=== PATIENT | female | born 1945 | race Caucasian/White ===

== ENCOUNTER 2017-11-12 09:42 | Inpatient (IN) | payer MEDICARE, OTHER ==
[~2017-11-12] VITALS: Ht 172.7 cm; Wt 81.0 kg
[~2017-11-12 09:42] MED LIST: ACET325 PO; ALBU90OI6 INH; AMIO200; AMIT50 PO; AMLO10; AMLO10 PO; Accupril40 MG PO; Amlodipine Besyl5 MG PO; BENA20 PO; BISA10S PR; CLON.1 PO; CVS DISPOSABLE399 ML PR; ENOX40I SC; FISH1000 PO; FOLI400 PO; Fenofibrate134 MG PO; GLIM4 PO; Gabapentin600 MG PO; HYDACE5; HYDR1TAB94 PO; Hydrocodone-Ap1 EA23 PO; IMODIUM A-D2 M1 PO; INSUASPI SC; IRBE150; K-Dur20 MEQ PO; LANS30EC; LAVAP17G PO; LEVSOD50 PO; LIDO5TO TOP; LOSARTAN POTASS50 MG PO; MAGCHL64ER PO; META800; METAXALONE800 MG PO; METF500; METF500 PO; METO100ER; METO100ER PO; METO2.5; METO2.5 PO; MULTI VITAMIN1 EACH PO; Milk Of Ma400 MG/5 M PO; OMEP20ER PO; OMEPRAZOLE MAGN20 MG PO; ONDA4 PO; POTA10T PO; PROMETH-CODEIN 65 ML PO; Potassium Chlo10 ME1 PO; QUIN5; Quinapril HCl40 MG PO; SACC250C PO; SPIR25; SPIR25 PO; TORSE20 PO; WARF4 PO; WARF5 PO; WARFARIN PO; Zofran4 MG PO
[2017-11-12 10:32] LABS: BASOPHILS ABSOLUTE AUTO 0.05 K/mm3 (0.00-0.23); BASOPHILS PERCENT AUTO 0 % (0-2); EOSINOPHILS ABSOLUTE AUTO 0.01 K/mm3 (0.00-0.68); EOSINOPHILS PERCENT AUTO 0 % (0-6); Hematocrit 43.4 % (33.0-51.0); Hemoglobin 14.7 g/dL (11.5-16.0); IMMATURE GRAN ABSOLUTE AUTO 0.11 K/mm3 (0.00-0.10); IMMATURE GRAN PERCENT AUTO 1 % (0-1); LYMPHOCYTES ABSOLUTE AUTO 0.92 K/mm3 (0.84-5.20); LYMPHOCYTES PERCENT AUTO 4 % (21-46); MONOCYTES PERCENT AUTO 6 % (4-13); Mean Corpuscular HGB 28.3 pg (26.0-34.0); Mean Corpuscular HGB Conc 33.9 g/dL (31.5-36.5); Mean Corpuscular Volume 84 fL (80-100); Mean Platelet Volume 9.4 fL (9.1-12.4); NEUTROPHILS ABSOLUTE AUTO 19.76 K/mm3 (1.96-9.15); NEUTROPHILS PERCENT AUTO 89 % (41-73); Platelet Count 395 K/mm3 (150-400); RDW Coefficient Variation 12.7 % (11.7-14.2); RDW Standard Deviation 38.7 fL (35.1-46.3); Red Blood Cell Count 5.19 M/mm3 (3.80-5.20); White Blood Cell Count 22.25 K/mm3 (4.00-11.30)
[2017-11-12 10:46] LABS: Albumin, Blood 4.2 g/dL (3.4-5.0); Bun/Creatinine Ratio 20.9 (12.0-20.0); Calcium, Blood 10.8 mg/dL (8.5-10.1); Creatinine, Blood 1.1 mg/dL (0.40-1.00); Globulin, Blood 4.2 g/dL (2.2-4.0); Potassium, Blood 4.6 mmol/L (3.5-5.5); Total Protein, Blood 8.4 g/dL (6.4-8.2)
[2017-11-12] MEDS ORDERED: TORSE20 PO (11:17)
[2017-11-12] MEDS ORDERED: METF500 PO (11:20)
[2017-11-12] MEDS ORDERED: GABA600 PO (11:22)
[2017-11-12] MEDS ORDERED: MAGCHL64ER PO (11:23)
[2017-11-12] MEDS ORDERED: TRIA15CR3 TOP (11:24)
[2017-11-12] MEDS ORDERED: AMIT25 PO (11:24)
[2017-11-12 17:22] LABS: International Normalized Ratio 1.97; Prothrombin Time Results 20.9 Sec (9.7-11.5)
[2017-11-12 17:46] LABS: Source, Urine Catheter
[2017-11-12 17:50] LABS: Bilirubin, Urine Neg (Neg); Blood, Urine 1+ (Neg); Glucose Qualitative, Urine Neg (Neg); Ketones, Urine Neg (Neg); Leukocyte Esterase, Urine 3+ (Neg); Nitrite, Urine Neg (Neg); Protein, Urine 2+ (Neg); Urobilinogen, Urine NORM (Normal)
[2017-11-12 18:01] LABS: Appearance, Urine Hazy (Clear); Color, Urine Yellow (P-Yellow)
[2017-11-12 18:02] LABS: White Blood Cells, Urine TNTC /hpf (0-5)
[2017-11-12 18:03] LABS: Bacteria Many /hpf; Renal Epithelial Few /hpf (0-Rare); Squamous Epithelial Cells Few /hpf (Few); Transitional Epithelial Cells Few /hpf (0-Rare)
[2017-11-13 05:07] LABS: BASOPHILS ABSOLUTE AUTO 0.03 K/mm3 (0.00-0.23); BASOPHILS PERCENT AUTO 0 % (0-2); EOSINOPHILS ABSOLUTE AUTO 0.05 K/mm3 (0.00-0.68); EOSINOPHILS PERCENT AUTO 0 % (0-6); Hematocrit 37.8 % (33.0-51.0); Hemoglobin 12.4 g/dL (11.5-16.0); IMMATURE GRAN ABSOLUTE AUTO 0.05 K/mm3 (0.00-0.10); IMMATURE GRAN PERCENT AUTO 0 % (0-1); LYMPHOCYTES ABSOLUTE AUTO 1.18 K/mm3 (0.84-5.20); LYMPHOCYTES PERCENT AUTO 7 % (21-46); MONOCYTES ABSOLUTE AUTO 1.66 K/mm3 (0.16-1.47); MONOCYTES PERCENT AUTO 10 % (4-13); Mean Corpuscular HGB 28.4 pg (26.0-34.0); Mean Corpuscular HGB Conc 32.8 g/dL (31.5-36.5); Mean Platelet Volume 9.6 fL (9.1-12.4); NEUTROPHILS ABSOLUTE AUTO 13.16 K/mm3 (1.96-9.15); NEUTROPHILS PERCENT AUTO 82 % (41-73); Platelet Count 331 K/mm3 (150-400); RDW Coefficient Variation 13.1 % (11.7-14.2); RDW Standard Deviation 40.9 fL (35.1-46.3); Red Blood Cell Count 4.36 M/mm3 (3.80-5.20); White Blood Cell Count 16.13 K/mm3 (4.00-11.30)
[2017-11-13 05:10] LABS: Mean Corpuscular Volume 87 fL (80-100)
[2017-11-13 05:20] LABS: International Normalized Ratio 1.26; Prothrombin Time Results 13.2 Sec (9.7-11.5)
[2017-11-13 05:27] LABS: Bun/Creatinine Ratio 21.8 (12.0-20.0); Calcium, Blood 9.5 mg/dL (8.5-10.1); Creatinine, Blood 1.01 mg/dL (0.40-1.00); Potassium, Blood 4.4 mmol/L (3.5-5.5)
[2017-11-14 04:57] LABS: BASOPHILS ABSOLUTE AUTO 0.03 K/mm3 (0.00-0.23); BASOPHILS PERCENT AUTO 0 % (0-2); EOSINOPHILS ABSOLUTE AUTO 0.17 K/mm3 (0.00-0.68); EOSINOPHILS PERCENT AUTO 1 % (0-6); Hematocrit 31.9 % (33.0-51.0); Hemoglobin 10.3 g/dL (11.5-16.0); IMMATURE GRAN ABSOLUTE AUTO 0.08 K/mm3 (0.00-0.10); IMMATURE GRAN PERCENT AUTO 1 % (0-1); LYMPHOCYTES ABSOLUTE AUTO 1.32 K/mm3 (0.84-5.20); LYMPHOCYTES PERCENT AUTO 11 % (21-46); MONOCYTES ABSOLUTE AUTO 1.25 K/mm3 (0.16-1.47); MONOCYTES PERCENT AUTO 10 % (4-13); Mean Corpuscular HGB 28.5 pg (26.0-34.0); Mean Corpuscular HGB Conc 32.3 g/dL (31.5-36.5); Mean Corpuscular Volume 88 fL (80-100); Mean Platelet Volume 9.3 fL (9.1-12.4); NEUTROPHILS ABSOLUTE AUTO 9.15 K/mm3 (1.96-9.15); NEUTROPHILS PERCENT AUTO 76 % (41-73); Platelet Count 230 K/mm3 (150-400); RDW Coefficient Variation 12.9 % (11.7-14.2); RDW Standard Deviation 41.9 fL (35.1-46.3); Red Blood Cell Count 3.62 M/mm3 (3.80-5.20)
[2017-11-14 05:09] LABS: International Normalized Ratio 1.09; Prothrombin Time Results 11.4 Sec (9.7-11.5)
[2017-11-14 05:41] LABS: Anion Gap 10 mmol/L (6-16); Blood Urea Nitrogen 20 mg/dL (8-24); CO2, Blood 26 mmol/L (21-32); Calcium, Blood 9.2 mg/dL (8.5-10.1); Chloride, Blood 105 mmol/L (98-108); Creatinine, Blood 0.95 mg/dL (0.40-1.00); Glomerular Filtration Rate >60 (60-); Glucose, Blood 162 mg/dL (70-99); Sodium, Blood 141 mmol/L (136-145)
[2017-11-14 16:24] LABS: Source, Urine Clean Catch
[2017-11-14 16:27] LABS: Bilirubin, Urine Neg (Neg); Blood, Urine Neg (Neg); Glucose Qualitative, Urine Neg (Neg); Ketones, Urine Neg (Neg); Leukocyte Esterase, Urine 2+ (Neg); Nitrite, Urine Neg (Neg); Protein, Urine Neg (Neg); Specific Gravity, Urine 1.005 (1.003-1.022); Urobilinogen, Urine NORM (Normal)
[2017-11-14 16:36] LABS: Appearance, Urine Clear (Clear); Bacteria Mod /hpf; Color, Urine Yellow (P-Yellow); Red Blood Cells, Urine 0-2 /hpf (0-2); Squamous Epithelial Cells Few /hpf (Few)
[2017-11-15 05:52] LABS: International Normalized Ratio 1.12; Prothrombin Time Results 11.7 Sec (9.7-11.5)
[2017-11-16 04:30] LABS: International Normalized Ratio 1.28; Prothrombin Time Results 13.4 Sec (9.7-11.5)
== END 2017-11-16 17:15 | disposition home or self-care (01) | DRG 336 ==
LOC: ER 09:42 → SURS 13:17
PROVIDERS: Emergency Medicine; Hospitalist; Surgery
PROC: 0DN80ZZ Release Small Intestine, Open Approach (ICD-10-PCS; principal; 2017-11-12 17:00)
DX: K56.51 Intestinal adhesions [bands], with partial obstruction (principal); E87.1 Hypo-osmolality and hyponatremia; E11.59 Type 2 diabetes mellitus with other circulatory complications; I42.9 Cardiomyopathy, unspecified; K86.0 Alcohol-induced chronic pancreatitis; I48.91 Unspecified atrial fibrillation; D72.829 Elevated white blood cell count, unspecified; E86.0 Dehydration; N39.0 Urinary tract infection, site not specified; E03.9 Hypothyroidism, unspecified; E78.5 Hyperlipidemia, unspecified; I10 Essential (primary) hypertension; M19.90 Unspecified osteoarthritis, unspecified site; Z79.01 Long term (current) use of anticoagulants; Z86.79 Personal history of other diseases of the circulatory system
CPT/HCPCS: 36415; 74022; 74176; 80048; 80053; 81001; 82947; 83690; 85025; 85610; 87077; 87086; 87186; 93005; 93010; 96361; 96374; 96375; 96376; 99285; C9113; J0330; J0360; J1885; J1956; J2405; J3010; J3430; J7030

== ENCOUNTER → 2017-12-18 | Outpatient (CLI) | payer MEDICARE, OTHER ==
[~2017-12-18] MED LIST changes: +AMIT25 PO; +GABA600 PO; +TRIA15CR3 TOP
== END ==
LOC: LAB SHORT 18:40 → LAB EV 18:40
DX: N39.0 Urinary tract infection, site not specified (principal)
CPT/HCPCS: 87077; 87086; 87186

== ENCOUNTER 2019-03-09 22:06 | Observation (INO) | payer MEDICARE, OTHER ==
[~2019-03-09] VITALS: Ht 172.7 cm; Wt 109.3 kg
[2019-03-09 22:58] LABS: BASOPHILS ABSOLUTE AUTO 0.04 K/mm3 (0.00-0.23); BASOPHILS PERCENT AUTO 0 % (0-2); EOSINOPHILS ABSOLUTE AUTO 0.04 K/mm3 (0.00-0.68); EOSINOPHILS PERCENT AUTO 0 % (0-6); Hematocrit 35.1 % (33.0-51.0); Hemoglobin 11.1 g/dL (11.5-16.0); IMMATURE GRAN ABSOLUTE AUTO 0.03 K/mm3 (0.00-0.10); IMMATURE GRAN PERCENT AUTO 0 % (0-1); LYMPHOCYTES ABSOLUTE AUTO 0.79 K/mm3 (0.84-5.20); LYMPHOCYTES PERCENT AUTO 9 % (21-46); MONOCYTES ABSOLUTE AUTO 1.01 K/mm3 (0.16-1.47); MONOCYTES PERCENT AUTO 11 % (4-13); Mean Corpuscular HGB 28.6 pg (26.0-34.0); Mean Corpuscular HGB Conc 31.6 g/dL (31.5-36.5); Mean Corpuscular Volume 91 fL (80-100); Mean Platelet Volume 9.5 fL (9.1-12.4); NEUTROPHILS ABSOLUTE AUTO 7.03 K/mm3 (1.96-9.15); NEUTROPHILS PERCENT AUTO 79 % (41-73); Platelet Count 273 K/mm3 (150-400); RDW Coefficient Variation 13.3 % (11.7-14.2); RDW Standard Deviation 44.1 fL (35.1-46.3); Red Blood Cell Count 3.88 M/mm3 (3.80-5.20); White Blood Cell Count 8.94 K/mm3 (4.00-11.30)
[2019-03-09 23:17] LABS: International Normalized Ratio 3.41; Prothrombin Time Results 32.3 Sec (9.7-11.5)
[2019-03-09 23:20] LABS: Albumin, Blood 3.9 g/dL (3.4-5.0); Albumin/Globulin Ratio 1.1 (0.8-1.8); Bilirubin, Total 0.3 mg/dL (0.1-1.0); Calcium, Blood 9.2 mg/dL (8.5-10.1); Creatinine, Blood 1.41 mg/dL (0.40-1.00); Globulin, Blood 3.6 g/dL (2.2-4.0); Potassium, Blood 6.2 mmol/L (3.5-5.5); Total Protein, Blood 7.5 g/dL (6.4-8.2)
[2019-03-10 00:42] LABS: Source, Urine Clean Catch
[2019-03-10 00:45] LABS: Appearance, Urine Cloudy (Clear); Bilirubin, Urine Neg (Neg); Blood, Urine 4+ (Neg); Color, Urine Yellow (P-Yellow); Glucose Qualitative, Urine Neg (Neg); Ketones, Urine Neg (Neg); Leukocyte Esterase, Urine 3+ (Neg); Nitrite, Urine Neg (Neg); Protein, Urine 2+ (Neg); Urobilinogen, Urine NORM (Normal)
[2019-03-10 00:50] LABS: White Blood Cells, Urine TNTC /hpf (0-5)
[2019-03-10 00:51] LABS: Bacteria Many /hpf; Squamous Epithelial Cells Few /hpf (Few)
--- NOTE | 2019-03-10 04:33 | NUR ---
0348 PT ADMITTED TO 356 PER CART FROM ER WITH SPOUSE AT SIDE. PTS ALL PERSONAL BELONGINGS SENT HOME. PT ALERT AND ORIENTED X2, SLIGHTLY FORGETFUL; HOWEVER ABLE TO FOLLOW ALL SIMPLE VERBAL COMMANDS.
--- NOTE | 2019-03-10 07:23 | NUR ---
SHIFT SUMMARY: 73 Y/O OBESE FEMALE HAD RESTLESS SHIFT. PTS IV RIGHT ANTECUBITAL SQ, DC'D ENTIRE CATHETER INTACT. THIS NURSE ATTEMPTED RESTART X 2 WITHOUT SUCCESS WITH ALBERTO GARCIA ATTEMPTING X 1 WITHOUT SUCCESS. PT WAS UP THREE TIMES X 1 STANDBY ASSIST TO UTILIZE BSC SINCE ADMISSION TO FLOOR. PT ALERT AND ORIENTED X 2, ABLE TO FOLLOW SIMPLE VERBAL COMMANDS. PTS BED ALARM APPLIED, BED LOW POSITION, CALL LIGHT AT SIDE. THIS NURSE ADVISED CHARGE NURSE--STEWART TITUS RN OF NEED FOR NEW IV WITH DAY SHIFT NURSE--MICHAEL DOMINGUEZ TO ATTEMPT POWER GLIDE.
[2019-03-10 09:40] LABS: International Normalized Ratio 2.17
[2019-03-10 09:43] LABS: Prothrombin Time Results 21.4 Sec (9.7-11.5)
[2019-03-10 09:47] LABS: Calcium, Blood 9.3 mg/dL (8.5-10.1); Creatinine, Blood 1.21 mg/dL (0.40-1.00); Potassium, Blood 5.1 mmol/L (3.5-5.5)
--- NOTE | 2019-03-10 14:48 | NUR ---
Patient in sitting up in bed with , Dick, bedside. Patient explains about her condition and although she came in last night she is ready to go home now. Bill explains that he is also having health issues and is scheduled for a surgical procedure. Since Bill had just arrived before me and wished to speak to patient privately, I asked if I could pray for them both. They affirmed that they would like that. So, I gladly provided prayer. Patient and Bill voiced appreciation for the prayer. I will continue to remain available.
[2019-03-10] MEDS ORDERED: CIPR250 PO (15:12)
--- NOTE | 2019-03-10 16:06 | NUR ---
PT AOX4 AND COOPERATIVE OF CARE. PT HAD ALL PAPERS REVIEWED AND EDUCATIONAL MATERIAL SIGNED AND SENT WITH HER. PT HAS APPOINTMENT SCHEDULED WITH DR MEYERS THURSDAY. NO DISTRESS NOTED. PT ESCORTED OUT IN WHEELCHAIR WITH TO TRANSPORT.
== END 2019-03-10 16:08 | disposition home or self-care (01) ==
LOC: ER 22:06 → MEDS 22:07
PROVIDERS: Emergency Medicine; ADMIT Hospitalist
DX: N39.0 Urinary tract infection, site not specified (principal); G92 Toxic encephalopathy; N17.9 Acute kidney failure, unspecified; E87.5 Hyperkalemia; E11.22 Type 2 diabetes mellitus with diabetic chronic kidney disease; I12.9 Hypertensive chronic kidney disease with stage 1 through stage 4 chronic kidney disease, or unspecified chronic kidney disease; N18.3 Chronic kidney disease, stage 3 (moderate); I48.91 Unspecified atrial fibrillation; M19.90 Unspecified osteoarthritis, unspecified site; E87.1 Hypo-osmolality and hyponatremia; Z90.49 Acquired absence of other specified parts of digestive tract; Z90.89 Acquired absence of other organs; Z90.710 Acquired absence of both cervix and uterus; Z79.899 Other long term (current) drug therapy; Z88.0 Allergy status to penicillin; Z88.1 Allergy status to other antibiotic agents
CPT/HCPCS: 36415; 70450; 80048; 80053; 81001; 82947; 84484; 85025; 85610; 85730; 87077; 87086; 87186; 93005; 93010; 96365; 96366; 96374; 96375; 99285-25; G0378; J0610; J0744; J1815; J7030; J7799

== ENCOUNTER 2019-05-20 18:15 | Emergency (ER) | payer MEDICARE, OTHER ==
[~2019-05-20] VITALS: Ht 172.7 cm; Wt 108.9 kg
[~2019-05-20 18:15] MED LIST changes: +CIPR250 PO
[2019-05-20 23:52] LABS: International Normalized Ratio 2.48; Prothrombin Time Results 24.2 Sec (9.7-11.5)
== END 2019-05-21 02:11 | disposition home or self-care (01) ==
LOC: ER 18:15
PROVIDERS: Emergency Medicine
DX: I11.0 Hypertensive heart disease with heart failure (principal); I50.9 Heart failure, unspecified; E11.9 Type 2 diabetes mellitus without complications; I48.2 Chronic atrial fibrillation; E87.1 Hypo-osmolality and hyponatremia; Z88.0 Allergy status to penicillin; Z88.1 Allergy status to other antibiotic agents; Z79.899 Other long term (current) drug therapy; Z79.01 Long term (current) use of anticoagulants; Z79.891 Long term (current) use of opiate analgesic; Z79.84 Long term (current) use of oral hypoglycemic drugs
CPT/HCPCS: 36415; 71046; 71260; 80053; 83880; 84443; 84484; 85025; 85610; 93005; 93010; 93971; 96360; 96361; 99284-25; J7030; Q9967

== ENCOUNTER → 2019-07-11 | Outpatient (CLI) | payer MEDICARE, OTHER | END | disposition home or self-care (01) | LOC: LAB SHORT 11:42 → LAB 11:42 | DX: L08.0 Pyoderma (principal) | CPT/HCPCS: 87070; 87077; 87147; 87186; 87205 ==

== ENCOUNTER 2020-03-20 10:16 | Inpatient (IN) | payer MEDICARE, OTHER ==
[~2020-03-20] VITALS: Ht 162.6 cm; Wt 103.2 kg
[2020-03-20] MEDS ORDERED: ELIQUIS5 M2 PO (11:02)
[2020-03-20] MEDS ORDERED: OLME20 PO (11:03)
[2020-03-20] MEDS ORDERED: PREG100 PO (11:04)
[2020-03-20] MEDS ORDERED: LIDO5TO TOP (11:04)
[2020-03-20] MEDS ORDERED: COMPLETENATE T1 EACH PO (11:06)
--- NOTE | 2020-03-20 16:02 | NUR ---
PT RETURNED TO RECOVERY ROOM, DIAPHORETIC. B/P 80/50, FLUIDS WIDE OPEN INCREASE TO 103/52. WILL CONTINUE TO MONITOR EVERY 5 MINUTES.
--- NOTE | 2020-03-20 17:03 | NUR ---
PT SENT TO CT SCAN FOR ABD/PELVIS AND TAKEN BACK TO THE LAB.
[2020-03-20 17:31] LABS: Hematocrit 24.3 % (33.0-51.0); Hemoglobin 7.6 g/dL (11.5-16.0)
--- NOTE | 2020-03-20 18:36 | NUR ---
1610 PATIENT AT THE BEDSIDE. PATIENT DIAPHORETIC. FLUID WIDE OPEN AND MONITORING VS CONTINOUSLY. DR. EDWARD CALLED TO THE BEDSIDE AND ASSESSED THE PATIENT. ORDERED STAT CT SCAN. PATIENT CONTINUED ON THE MONITOR THORUGHOUT TIME IN CT AND RETURN TO THE HOG COUNTER AT [id number]. NIBP REMAINS LOW, IVF ON PRESSURE BAG AND OPENED. PATIENT ALERT AND ABLE TO FOLLOW COMMANDS WHEN PROMPTED. UPDATED BY RN AND DR. EDWARD ON THE RESULTS OF CT SCAN.
[2020-03-20 18:43] LABS: Source, Urine Catheter
[2020-03-20 18:53] LABS: Bilirubin, Urine Neg (Neg); Blood, Urine 3+ (Neg); Glucose Qualitative, Urine Neg (Neg); Ketones, Urine Neg (Neg); Leukocyte Esterase, Urine 3+ (Neg); Nitrite, Urine Neg (Neg); Protein, Urine 1+ (Neg); Specific Gravity, Urine 1.005 (1.003-1.022); Urobilinogen, Urine NORM (Normal)
--- NOTE | 2020-03-20 18:53 | NUR ---
1809-RECEIVED THIS PATIENT FROM THE CANTILEVER CRANE OPERATOR. ALERT AND ORIENTED. PT IS FOLLOWING COMMANDS. PT ARRIVED TO THE UNIT AT S/P LE REVASCULARIZATION, DEVELOPED A RETROPERITONEAL BLEED. UPON ARRIVAL TO THE UNIT, PT IS COLD AND CLAMMY, DIAPHORETIC. DR. EDWARD AND DR. AL AT BEDSIDE. R GROIN ACCESS SITE HAS ANGIOSEAL CLOSURE, SOFT ON PALPATION. L GROIN HAS AN ARTERIAL SHEATH CONNECTED TO AN ART LINE. LEFT GROIN ACCESS SITE SOFT ON PALPATION. PEDAL PULSES ARE PALPABLE BUT FAINT. RADIAL PULSES AR PALPABLE. R IJ CENTRAL LINE. LUNGS SOUNDS CLEAR BY DIMINISHED. PT IS RECEIVING IV FLUIDS BOLUS. 1844-PRBC WAS STARTED. AT BEDSIDE.
[2020-03-20 18:57] LABS: Appearance, Urine Hazy (Clear); Color, Urine Yellow (P-Yellow)
[2020-03-20 18:59] LABS: Bacteria Many /hpf; Squamous Epithelial Cells Few /hpf (Few)
--- NOTE | 2020-03-20 20:56 | NUR ---
Valuable Check Two rings sent home with . Cane, glasses, upper dentures, and clothing remain with patient.
--- NOTE | 2020-03-20 21:11 | NUR ---
Provider Updated Dr. Hernández updated regarding current patient status. Client remains on vasopressors. Client to remain extended recovery at this time.
[2020-03-20 21:41] LABS: Hematocrit 39.4 % (33.0-51.0); Hemoglobin 12.1 g/dL (11.5-16.0)
--- NOTE | 2020-03-20 22:16 | NUR ---
PROVIDER UPDATE DR. MARTINEZ UPDATED ON PATIENT STATUS. URINE OUTPUT TRENDING DOWN. PATIENT STILL REQUIRING LEVOPHED TO MAINTAIN MAP>65. PATIENT REMAINS COOL AND DIAPHORETIC. WARMING BLANKET APPLIED. H&H IMPROVED FROM LAST RESULT. WILL REASSESS WITH 0130 CHECK. PLAN TO ADMINISTER ONE UNIT PRBCS AND NOTIFY DR. EDWARD IF HEMOGLOBIN IS BELOW 9. ELECTROYLTE REPLACEMENT PROTOCOL ORDER PLACED. NOTIFIED PROVIDER OF ABDOMINAL PAIN 05/31 AND THAT THE CLIENT REMAINS LETHARGIC. WILL CONTINUE TO MONITOR AND TITRATE VASPRESSOR ABLE.
[2020-03-20 22:46] LABS: Hematocrit 39.2 % (33.0-51.0); Hemoglobin 12.1 g/dL (11.5-16.0)
--- NOTE | 2020-03-20 23:27 | NUR ---
ASSUMED CARE ASSUMED CARE OF PATIENT. PATIENT ON 15 MCG/MIN OF LEVOPHED. LEFT FEMORAL ARTERIAL LINE IN PLACE. PATIENT ON 15 L O2 NON-REBREATHER. SHALLOW RESPIRATIONS SHALLOW. SKIN PALE AND CLAMMY. AT BEDSIDE. GROIN SITES ASSESSED WITH OFFGOING WITH NURSE. HOLLY PATENT AND DRAINING. PATIENT LETHARGIC BUT ROUSES TO LIGHT VERBAL STIMULI. ONE UNIT OF PRBCS INFUSING. SITE IDENTIFICATION SPECIALIST AT THE BEDSIDE. SEE ADMISSION ASSESSMENT FOR FULL ASSESSMENT.
--- NOTE | 2020-03-20 23:55 | NUR ---
HYPOTENSION/CALL TO MD AT 2335 ARTERIAL SBP 60-70s WITH AFIB, RATE 100-130s. LEVOPHED TITRATED UP TO 30MCG/MIN AND NEOSYNEPHRINE GTT RESTARTED AT 50MCG/MIN. DR. MARTINEZ NOTIFIED AT 2355 OF CHANGE IN HEMODYNAMICS AND THAT HER URINE OUTPUT HAS BEEN 0 FOR THE LAST TWO HOURS. NEW ORDERS RECEIVED FOR NS IV BOLUS X 2 L.
[2020-03-21 00:22] LABS: pH Blood Arterial 6.96 (7.35-7.45)
[2020-03-21 00:23] LABS: PCO2 Arterial 39.2 mmHg (35-45); PO2 Arterial >500 mmHg (80-100)
[2020-03-21 00:26] LABS: Hematocrit 37.9 % (33.0-51.0); Hemoglobin 11.3 g/dL (11.5-16.0)
--- NOTE | 2020-03-21 00:30 | NUR ---
ABG RESULTS/CALL TO CRITICAL ABG RESULTS AND HEMODYNAMIC UPDATE CALLED TO DR. MARTINEZ AT THIS TIME. NEW ORDERS RECEIVED FOR NAHCO3 IVP X 2 AMPS AND TO START A BICARB GTT. ALSO NOTIFIED OF PT'S C/O 05/31 RIGHT ABDOMEN PAIN- NEW ORDER RECEIVED FOR FENTANYL IVP FOR PAIN. ALSO DISCUSSED PREVIOUSLY ORDERED FLUID BOLUSES AND ORDER WAS GIVEN TO ONLY GIVE 1L TOTAL.
[2020-03-21 00:42] LABS: International Normalized Ratio 1.49; Prothrombin Time Results 15.6 Sec (9.7-11.5)
[2020-03-21 00:47] LABS: Albumin, Blood 2.8 g/dL (3.4-5.0); Albumin/Globulin Ratio 1.1 (0.8-1.8); Bilirubin, Total 1.3 mg/dL (0.1-1.0); Bun/Creatinine Ratio 20.4 (12.0-20.0); Calcium, Blood 7.8 mg/dL (8.5-10.1); Creatinine, Blood 1.52 mg/dL (0.40-1.00); Globulin, Blood 2.5 g/dL (2.2-4.0); Potassium, Blood 5.6 mmol/L (3.5-5.5); Total Protein, Blood 5.3 g/dL (6.4-8.2); Troponin I 0.486 ng/mL (0.000-0.040)
--- NOTE | 2020-03-21 00:53 | NUR ---
PROVIDER UPDATED 03/21/[address] EDWARD IN ROOM TO ASSESS PATIENT. INCREASE IN NEED FOR VASOPRESSORS. RECENT RHYTHM CHANGE WITH WIDENED QRS. EKG PERFORMED. MAINTAINING IN THE 130S. SBP IN THE 60S. PATIENT TO BE TAKEN TO CT ONCE STABLE TO EVALUATE ABDOMEN/PELVIS. CHEMISTRY, CARDIAC ENZYMES, REPEAT H&H, ARTERIAL BLOOD GAS, AND COAGS TO DRAWN. 1 L OF OF NS INFUSING A BOLUS AND VASOPRESSIN STARTED PER DR. MARTINEZ.
--- NOTE | 2020-03-21 00:59 | NUR ---
FAMILY UPDATE 03/21/20 0015 CALLED FOR AN UPDATE. UPDATED REGARDING RECENT CHANGE IN STATUS AND PENDING LAB RESULTS AND PLAN OF CARE.
--- NOTE | 2020-03-21 02:45 | NUR ---
BP/HR, CALL TO MD DR. MARTINEZ NOTIFIED OF AFIB, RATE 110-180s AND HYPOTENSION WITH SBP 60s. ALSO NOTIFIED OF CONTINUED NO URINE OUTPUT. MD WILL BE COMING IN TO HOSPITAL. ALSO NOTIFIED AT THIS TIME OF DECLINE IN PATIENT'S CONDITION.
[2020-03-21 03:09] LABS: PCO2 Arterial 28.6 mmHg (35-45); PO2 Arterial 132 mmHg (80-100); pH Blood Arterial 7.09 (7.35-7.45)
[2020-03-21 04:12] LABS: PCO2 Arterial 39.1 mmHg (35-45); PO2 Arterial 108 mmHg (80-100)
[2020-03-21 04:18] LABS: Hematocrit 29.5 % (33.0-51.0); Hemoglobin 9.1 g/dL (11.5-16.0)
--- NOTE | 2020-03-21 04:51 | NUR ---
CT TO CT FOR ABD/PELVIS CT. DR. EDWARD AND DR. MARTINEZ ACCOMPANYING PT TO CT WITH THREE RNs AND RT.
--- NOTE | 2020-03-21 06:50 | NUR ---
RN SHIFT SUMMARY PATIENT REMAINS LETHARGIC BUT ROUSES TO VERBAL STIMULI. PAIN MANAGED WITH PRN FENTANYL IV PUSHES. PATIENT REMAINS IN AFIB WITH LABILE BLOOD PRESSURES. PHENYLYEPHRINE RECENTLY TITRATED OFF. LEVOPHED CONTINUES AND IS BEING TITRATED ABLE (SEE FLOWSHEETS). PULSES BY DOPPLER IN THE BLE WHICH REMAIN DUSKY AND COOL. LUNGS REMAIN CLEAR AND DIM. PATIENT TOLERATING 8 L O2 VIA VENTURI MASK. TACHYPNEIC AT TIMES. BOWEL TONES REMAIN HYPOACTIVE. PATIENT TENDER IN THE RLQ. NPO AT THIS TIME. TEMP SENSE HOLLY REMAINS IN PLACE. NO URINE OUTPUT SINCE 2300. PROVIDERS AWARE. BLADDER SCAN PERFORMED AND CATHETER IRRIGATED. NO IMPROVEMENT. SKIN REMAINS CLAMMY BUT PATIENT TEMPERATURE HAS IMPROVED. PATIENT CALM AND APPROPRIATE. LEFT FEMORAL LINE IN PLACE WITH APPROPRIATE WAVEFORM. CENTRAL LINE INTACT AND INFUSING. SURGERY CONSULTED AFTER INCREASED NEED IN PRESSORS AND CONTINUED ABDOMINAL PAIN. CALCIUM REPLACED. FOUR AMPS OF BICARB GIVEN FOR ACIDOSIS THIS SHIFT. CONTINUOUS BICARBONATE DRIP CONTINUES. PATIENT TAKEN TO CT TO EVALUATE ABDOMEN/PELVIS. PROVIDERS UPDATED SPOUSE OF PATIENT CONDITION. NO NEED FOR SURGERY AT THIS TIME. WILL CONTINUE TO MONITOR FOR SIGNS OF BLEEDING AND ADMINISTER BLOOD PRODUCTS ORDERED. BLOOD PRODUCTS GIVEN THIS SHIFT: 3 UNITS PRBCS, 1 FFP. 1 MORE FFP & PRBC TO GIVE
--- NOTE | 2020-03-21 07:05 | NUR ---
CALL TO PROVIDER 03/21/[address] EDWARD UPDATED ON PATIENT STATUS. PATIENT REQUIRING MORE VASOPRESSORS IN ORDER TO MAINTAIN BP. UPDATED ON MOST RECENT LAB RESULTS.
--- NOTE | 2020-03-21 08:29 | NUR ---
ASSUMED CARE OF PT AT 0700. REPORT FROM TIFFANIE DOMINGUEZ. PT RESPONSES TO VERBAL STIMULI, ANSWERS SIMPLE YES/NO QUESTIONS, FOLLOWS SIMPLE COMMANDS. DROWSY. C/O PAIN TO ABD. LUNGS CLEAR IN LEFT UPPER LOBE, DIMINSHED IN ALL OTHERS. SHALLOW RESP. VENTI MASK IN PLACE, 8L 40% FIO2. O2 SATS MID 90'S. PT PALE, COOL. HR 100-130'S, AFIB. LEVOPHED INFUSING AT 30 MCG/MIN AND VASOPRESSIN AT 0.04 UNIT/HR. WILL CONTINUE TO TITRATE PRESSORS FOR MAP >65. CENTRAL LINE TO RIGHT IJ, DRESSING C/D/I. ART LINE TO LEFT GROIN, DRESSING C/D/I. ANGIOSEAL TO LEFT GROIN c TEGADERM IN PLACE, SOFT, NON TENDER. ABD ROUND, TENDER IN RLQ, BT HYPOACTIVE. PT NPO. TEMP PROBE HOLLY IN PLACE. SCANT AMOUNT OF CLEAR URINE IN TUBE, NO URINE IN DRAINAGE BAG. NEPHROLOGY CONSULTED. CHINYERE LOWER EXT COOL, DUSKY, PULSES BY DOPPLER ONLY. DELAYED CAP REFILL. FFP TRANSFUSED AND PRBCS TRANSFUSING AT THIS TIME. WILL REPEAT LABS p COMPLETE. SO AT BEDSIDE. WILL CONTINUE TO MONITOR.
[2020-03-21 09:06] LABS: PCO2 Arterial 34 mmHg (35-45); PO2 Arterial 100 mmHg (80-100); pH Blood Arterial 7.07 (7.35-7.45)
[2020-03-21 09:29] LABS: Albumin, Blood 2.3 g/dL (3.4-5.0); Bilirubin, Total 1.4 mg/dL (0.1-1.0); Calcium, Blood 7.8 mg/dL (8.5-10.1); Creatinine, Blood 1.94 mg/dL (0.40-1.00); Globulin, Blood 2.3 g/dL (2.2-4.0); Potassium, Blood 4.7 mmol/L (3.5-5.5); Total Protein, Blood 4.6 g/dL (6.4-8.2)
[2020-03-21 11:17] LABS: PCO2 Arterial 35.4 mmHg (35-45); PO2 Arterial 79.4 mmHg (80-100)
[2020-03-21 11:18] LABS: pH Blood Arterial 7.12 (7.35-7.45)
[2020-03-21 11:29] LABS: Bun/Creatinine Ratio 16.4 (12.0-20.0); Calcium, Blood 7.7 mg/dL (8.5-10.1); Creatinine, Blood 2.13 mg/dL (0.40-1.00); Potassium, Blood 4.9 mmol/L (3.5-5.5)
--- NOTE | 2020-03-21 11:58 | NUR ---
PT HAS BEEN SEEN BY DR DONAHUE, CHEYANNE, NATHAN, AND AUBREE. PLAN FOR PLACEMENT OF DIALYSIS CATH, AWAITING DR EDWARD FOR PLACEMENT. ECHO IN PROGRESS. NEOSYNEPHRINE RESTARTED D/T PT'S BP. HEART RATE TRENDING UP, 110-130'S. ABD DISTENDED, TENDER THROUGHOUT. LUNGS DIMINISHED. DIFFICULTIES OBTAINING O2 SATS, RT NOTIFIED. NO URINE OUTPUT. 2 AMPS BICARB GIVEN, CONTINUED BICARB DRIP. AWAITING REPEAT LABS, PICC PLACEMENT AND DIALYSIS CATH PLACEMENT.
[2020-03-21 12:15] LABS: BASOPHILS ABSOLUTE AUTO 0.07 K/mm3 (0.00-0.23); BASOPHILS PERCENT AUTO 0 % (0-2); EOSINOPHILS PERCENT AUTO 0 % (0-6); Hematocrit 30.1 % (33.0-51.0); Hemoglobin 9.3 g/dL (11.5-16.0); IMMATURE GRAN ABSOLUTE AUTO 0.68 K/mm3 (0.00-0.10); IMMATURE GRAN PERCENT AUTO 2 % (0-1); LYMPHOCYTES ABSOLUTE AUTO 1.14 K/mm3 (0.84-5.20); LYMPHOCYTES PERCENT AUTO 3 % (21-46); MONOCYTES ABSOLUTE AUTO 2.78 K/mm3 (0.16-1.47); MONOCYTES PERCENT AUTO 8 % (4-13); Mean Corpuscular HGB Conc 30.9 g/dL (31.5-36.5); Mean Corpuscular Volume 94 fL (80-100); Mean Platelet Volume 11.1 fL (9.1-12.4); NEUTROPHILS ABSOLUTE AUTO 32.34 K/mm3 (1.96-9.15); NEUTROPHILS PERCENT AUTO 87 % (41-73); NRBC ABSOLUTE 0.06 K/mm3 (0.00-0.02); NRBC Auto 0.2 /100 WBC (0.0-0.2); Platelet Count 133 K/mm3 (150-400); RDW Coefficient Variation 15.9 % (11.7-14.2); RDW Standard Deviation 54.9 fL (35.1-46.3); Red Blood Cell Count 3.21 M/mm3 (3.80-5.20); White Blood Cell Count 37.01 K/mm3 (4.00-11.30)
--- NOTE | 2020-03-21 13:02 | NUR ---
Received call from ICU sheet metal shop helper Stacey, discussed case and concerns. Spoke with Dr Jackson and discussed case. Discussed POLST on file which indicates CPR but no intubation. Pt resting in bed with staff providing care at this time. Met with Pt's daughter Marcelina in ICU robles. Marcelina reports Pt's spouse left to take dog home and will be back soon. Engaged in therapeutic discussion regarding clinical condition and code status. Listened as Marcelina reports spouse would want everything done. Marcelina reports she does not think her mom would want everything done. Educated Marcelina on life sustaining measures including risk factors and implications. POLST was completed in 2017 and inquired if any recent conversations have been discussed with Pt's wishes regarding life sustaining measures. No response at this time by daughter Marcelina. Marcelina tearfult at times during visit. Offered emotional support and therapeutic listening. Marcelina reports she will discuss further with spouse when he returns. Palliative Care will remain available.
--- NOTE | 2020-03-21 13:45 | NUR ---
INTRAABDOMINAL PRESSURES 10-13. PRESSORS CONTINUED. PRBC AND PLATLETS TRANSFUSING, PLAN FOR FFP X 2. PLAN FOR DIALYSIS. PT MORE SOMULENT, PROTECTING AIRWAY AT THIS TIME. VENTI MASK IN PLACE.
--- NOTE | 2020-03-21 15:47 | NUR ---
Upon receiving a call from Chaplain Denise Amaro to assist on a code blue for patient, I visit with patient's sister Marcelina outside of patient's rm (Denise is in pt rm with pt and her ). I provide distracting conversation and encourage slow therapeutic breathing while the noises of CPR are being heard by Marcelina and she is vomiting. I rub her shoulder and provide a calming presence and prayer. I walk Marcelina into the patient's rm after ToD is called. Chaplain Walker comforts the family from that point on.
--- NOTE | 2020-03-21 16:11 | NUR ---
IN ROOM c PT AT 1500, DOLONDA IN ROOM. PT ON DIALYSIS. INCREASING HYPOTENSION NOTED. AWAITING EPI DRIP. VASOPRESSIN 0.04 UNITS/HR, LEVOPHED 30 MCG/MIN, NEOSYNEPHRINE 200 MCG/MIN INFUSING, PRBC AND BICARB. FFP ON DIALYSIS MACHINE. PT RESP RATE DECLINING, AGONAL RESP NOTED. PT NON RESPONSIVE TO PAINFUL STIMULI. NO PULSE PAL, PEA ON MONITOR, ARTLINE c GOOD WAVEFORM, HYPOTENSIVE. CODE CALLED. FAMILY AT BEDSIDE. SEE CODE SHEET. 1528- DR MAK SPEAKING c , REQUESTED ALL EFFORTS STOPPED. TOD 1528.
--- NOTE | 2020-03-21 16:24 | NUR ---
Michelle Lee called for Pt. Arrived to Pt's room and code is being performed. Reminded team of Pt's wishes listed on POLST. Pt's daughter Gypsy comes out of room and is emotionaly distressed. ALBERTO Arriaza and this RN assisted with daughter Emi in calming breathing. Control Systems Eng Tim arrives and assissts with emotional support. Provided distraction for daughter and discussed topics other than what is happening in Pt's room. Pt's breathing calms. Pt has and this RN assists Control Systems Eng Denise with emotional support. Offered condolences and daughter leaves. stays for a while then alos leaves. Discussed case with part of code team. Palliative Care will remain available.
--- NOTE | 2020-03-21 16:29 | NUR ---
Spiritual care note: Present with spouse, Dick, throughout code. Provided calm presence and prayer at TOD. Dick was tearful but said little. Dtr also at bedside and hysterical. Offered education, gentle grief counselling psychologist and guidence. Family selected [facility] for arrangements. Walked family to car.
--- NOTE | 2020-03-21 17:07 | NUR ---
DIALYSIS STARTED FIRST DIALYSIS ON PT. AND DAUGHTER IN ROOM. PT ON BIPAP. HAVING DIFFICULTIES WITH HYPOTENSION, RESP, AND HR. CONNECTED PT TO DIALYSIS. SET GOAL FOR 500 ML, ALMOST IMMEDIALTELY DECREASE TO 200ML. BP DROPPING. GAVE 2 UNITS OF FFP. 1503 TOLD TO DC [place]. RETURNED BLOOD. MICH OLIVIA CALLED. IT TOOK A FEW MIN TO ACCESS MY MACHINE AND GET IT OUT OF THE WAY.
== END 2020-03-21 15:28 | DRG 907 ==
LOC: MHTC 10:16 → ICUW 18:26
PROVIDERS: Internal Medicine; Internal Medicine Critical Care Medicine; ADMIT Radiology Diagnostic Radiology
PROC: 05HM33Z Insertion of Infusion Device into Right Internal Jugular Vein, Percutaneous Approach (ICD-10-PCS; principal; 2020-03-20)
PROC: 3E033XZ Introduction of Vasopressor into Peripheral Vein, Percutaneous Approach (ICD-10-PCS; 2020-03-20)
PROC: 30243K1 Transfusion of Nonautologous Frozen Plasma into Central Vein, Percutaneous Approach (ICD-10-PCS; 2020-03-20)
PROC: 30233N1 Transfusion of Nonautologous Red Blood Cells into Peripheral Vein, Percutaneous Approach (ICD-10-PCS; 2020-03-20)
PROC: 30233R1 Transfusion of Nonautologous Platelets into Peripheral Vein, Percutaneous Approach (ICD-10-PCS; 2020-03-20)
PROC: B41D1ZZ Fluoroscopy of Aorta and Bilateral Lower Extremity Arteries using Low Osmolar Contrast (ICD-10-PCS; 2020-03-20)
PROC: 047D35Z Dilation of Left Common Iliac Artery with Two Drug-eluting Intraluminal Devices, Percutaneous Approach (ICD-10-PCS; 2020-03-20)
PROC: 5A1D70Z Performance of Urinary Filtration, Intermittent, Less than 6 Hours Per Day (ICD-10-PCS; 2020-03-21)
DX: K91.841 Postprocedural hemorrhage of a digestive system organ or structure following other procedure (principal); N17.0 Acute kidney failure with tubular necrosis; K66.1 Hemoperitoneum; E87.2 Acidosis; I95.81 Postprocedural hypotension; I70.212 Atherosclerosis of native arteries of extremities with intermittent claudication, left leg; Z90.49 Acquired absence of other specified parts of digestive tract; I48.91 Unspecified atrial fibrillation; E11.40 Type 2 diabetes mellitus with diabetic neuropathy, unspecified; Z79.84 Long term (current) use of oral hypoglycemic drugs; E66.9 Obesity, unspecified; Z68.39 Body mass index [BMI] 39.0-39.9, adult; R57.8 Other shock; Z79.01 Long term (current) use of anticoagulants; E11.51 Type 2 diabetes mellitus with diabetic peripheral angiopathy without gangrene; N18.3 Chronic kidney disease, stage 3 (moderate); I12.9 Hypertensive chronic kidney disease with stage 1 through stage 4 chronic kidney disease, or unspecified chronic kidney disease; E11.22 Type 2 diabetes mellitus with diabetic chronic kidney disease; I27.20 Pulmonary hypertension, unspecified; D64.9 Anemia, unspecified
CPT/HCPCS: 31500; 31720; 36415; 36430; 36556; 37221; 51702; 74174; 74176; 75625; 75716; 76937; 80048; 80053; 81001; 82550; 82803; 82947; 83605; 83735; 84484; 85014; 85018; 85025; 85347; 85610; 85730; 86850; 86900; 86901; 86923; 87077; 87086; 87186; 93005; 93010; 93306; 99152; 99153; C1725; C1751; C1760; C1769; C1874; C1887; C1894; J0171; J1644; J2250; J2370; J2405; J3010; J7030; J7040; J7050; J7060; J7070; P9016; P9035; P9059; Q9967